=== PATIENT | female | born 1975 | race American Indian/Alaskan Native ===

== ENCOUNTER 2022-01-19 11:11 | Emergency (ER) | payer MEDICAID ==
[2022-01-19] MEDS ORDERED: Sodium Chloride 0.9% 1,000 ML IV SCH (11:45)
[2022-01-19] MEDS ORDERED: cefTRIAXone 2 GM in Sodium Chloride 0.9% 50 ML IV ONE (12:30)
[2022-01-19] MEDS ORDERED: Lactated Ringers 1,000 ML IV SCH (12:45)
[2022-01-19 12:54] LABS: TROPONIN I HIGH SENSITIVITY 53.6 pg/mL (<=60.3)
[2022-01-19 13:36] LABS: CORONAVIRUS COVID-19 NAA NEGATIVE (NEGATIVE)
== END 2022-01-19 15:54 ==
LOC: JP.ED 11:11
DX: A41.9 Sepsis, unspecified organism (principal); N39.0 Urinary tract infection, site not specified; J18.9 Pneumonia, unspecified organism; E86.0 Dehydration; Z20.822 Contact with and (suspected) exposure to COVID-19
CPT/HCPCS: 0241U; 36415; 36600; 70450; 70450-26; 71045; 71045-26; 80053; 80305-QW; 80307; 81001; 82803; 83605; 83880; 84484; 85025; 86140; 87040; 87086; 87088; 87186; 93005; 93010; 96365; 99285; 99285-25; J0696; J7030; J7120